=== PATIENT | female | born 1950 | race Caucasian/White ===

== ENCOUNTER 2016-12-24 20:07 | Emergency (ER) | payer MEDICARE ==
--- NOTE | 2016-12-31 19:36 | ER ---
ADMIT: 12/24/2016 RM/LOC: ER [facility] MR#: [id number] [address] [facility] [id number] LIAN TOMLINSON [address] [facility] [address] Emergency Room Report SEX: F AGE: 66 : 1950 DATE: 12/24/2016 ADDENDUM: This is regarding an antibiotic that she needed to receive for urinary tract infection. I went ahead and called in Macrobid based on the culture and sensitivity 100 mg p.o. b.i.d. 7 days. Called to [facility] on [address]. MARY Barakat / Sohail Nuñez MD / theresa JOB #: [id number] CC: Sohail Nuñez MD, Attending Physician Maryanne Church APRN-CADENCE, Family Physician
--- NOTE | 2017-01-14 21:26 | ER ---
ADMIT: 12/24/2016 RM/LOC: ER [facility] MR#: [id number] [address] [address] LIAN TOMLINSON I [address] [place] [address] Emergency Room Report SEX: F AGE: 66 : 1950 DATE: 12/24/2016 HISTORY OF PRESENT ILLNESS: A 66-year-old female comes to the Emergency Department with fever, chills, and back pain. It has been present for the past several days. The pain is lessened up quite a bit, but she is still having fevers, chills, and frequent urination. See T-sheet for remainder of history and physical. UA shows nitrite positive, leukocyte esterase 3+, wbc's 86, white count is 16.9. Electrolytes were essentially normal. A CT renal run shows findings consistent with a recently passed right kidney stone. The patient is given a Rocephin 2 g in the Emergency Department, a liter of fluids, prescription for Cipro and Zofran, instructed to follow up with the primary doctor this Monday. DIAGNOSIS: Urinary tract infection. Gentry Varner MD/ theresa JOB #: [id number] CC: Sohail Nuñez MD, Attending Physician Maryanne Church APRN-CADENCE, Family Physician
== END 2016-12-24 23:15 | disposition home or self-care (01) ==
LOC: ER 20:07
DX: N39.0 Urinary tract infection, site not specified (principal); E11.9 Type 2 diabetes mellitus without complications; Z88.0 Allergy status to penicillin; Z79.84 Long term (current) use of oral hypoglycemic drugs; Z79.899 Other long term (current) drug therapy